=== PATIENT | female | born 1970 | race African-American/Black ===

== ENCOUNTER → 2020-08-24 | Outpatient (CLI) | payer BC ==
[2015-08-12 07:30] VITALS: BP 164/96
[~2020-08-24] MED LIST: PRED50TA PO
--- NOTE | 2020-08-30 14:58 | RAD ---
DATE: 08/24/2020 11:30 AM EXAM: MAMMO JR SCREENING BILATERAL HISTORY: New baseline screening. Priors not available for review. COMPARISON: None. Bilateral CC and MLO views of the breasts were performed. Bilateral breast tomosynthesis was performed in CC and MLO projections. This study was interpreted with the benefit of Computerized Aided Detection (CAD). FINDINGS: Breast Density: HETERO The breast parenchyma Is heterogeneously dense, which could reduce sensitivity of mammography. Breast parenchyma level C Right breast: Well-circumscribed mass within the right mid inferior breast approximately 6 m from the nipple measures 0.6 cm. Additional asymmetry seen on MLO view anterior depth approximately 4.2 cm from the nipple. No suspicious microcatheter ossification architectural distortion. Left breast: Well-circumscribed mass within the left upper outer breast approximately 6 m from the nipple measures 1.3 x 1.3 cm. No suspicious microcatheter ossification or architectural distortion. IMPRESSION: Right breast mass and asymmetry. Recommend spot compression views and ultrasound. Left breast mass. Recommend spot compression views and ultrasound. BI-RADS CATEGORY: 0 INCOMPLETE: NEEDS ADDITIONAL IMAGING EVALUATION AND/OR PRIOR MAMMOGRAMS FOR COMPARISON. RECOMMENDED FOLLOW-UP: ADD ADDITIONAL IMAGING. Bilateral breast spot compression views and ultrasound. PQRS compliance statement: Patient information was entered into a reminder system with a target due date for the next mammogram. Mammography is a sensitive method for finding small breast cancers, but it does not detect them all and is not a substitute for careful clinical examination. A negative mammogram does not negate a clinically suspicious finding and should not result in delay in biopsying a clinically suspicious abnormality. "Our facility is accredited by the [employer] Mammography Program."
== END ==
LOC: MAMMO 11:21
PROVIDERS: ATTEND Family Medicine
DX: Z12.31 Encounter for screening mammogram for malignant neoplasm of breast (principal); N63.20 Unspecified lump in the left breast, unspecified quadrant; N63.10 Unspecified lump in the right breast, unspecified quadrant
CPT/HCPCS: 77063; 77067

== ENCOUNTER → 2020-09-12 | Outpatient (CLI) | payer BC ==
[2015-08-12 07:30] VITALS: BP 164/96
--- NOTE | 2020-09-21 08:01 | RAD ---
DATE: 09/12/2020 EXAM: DIGITAL DIAGNOSTIC BILATERAL, BREAST BILATERAL HISTORY: 50-year-old woman recalled from screening mammogram for bilateral masses. COMPARISON: Screening mammogram 08/24/2020 This study was interpreted with the benefit of Computerized Aided Detection (CAD). Breast Density: HETERO The breast parenchyma is heterogenously dense, which could reduce sensitivity of mammography. Breast parenchyma level C. FINDINGS: Mammogram: Spot compression CC and MLO views of both breasts were obtained. The masses do not resolve with spot compression. Ultrasound: The right breast was imaged from 6:00 to 8:00. At 7:00, 5 cm from the nipple there is an ovoid hypoechoic mass measuring 6 x 3 x 2 mm. This has circumscribed margins and some posterior acoustic enhancement. There is no right breast mass identified. The right axilla demonstrates normal lymph nodes. The left breast was imaged 1:00 to 3:00. At 2:00, 5 cm from the nipple there is a ovoid hypoechoic solid mass with a few cystic changes. This has fairly circumscribed margins. IMPRESSION: 1. Mildly suspicious 9 mm hypoechoic mass in the left breast. Recommend ultrasound-guided biopsy. 2. Probably benign hypoechoic ovoid mass in the right breast. Recommend 6 month follow-up ultrasound to ensure stability. BI-RADS CATEGORY: 4 SUSPICIOUS ABNORMALITY- BIOPSY SHOULD BE CONSIDERED RECOMMENDED FOLLOW-UP: RIGHT BREAST: BIO BIOPSY RECOMMENDED LEFT BREAST: 6M6 MONTH FOLLOW-UP PQRS compliance statement: Patient information was entered into a reminder system with a target due date for the next mammogram. Mammography is a sensitive method for finding small breast cancers, but it does not detect them all and is not a substitute for careful clinical examination. A negative mammogram does not negate a clinically suspicious finding and should not result in delay in biopsying a clinically suspicious abnormality. "Our facility is accredited by the [employer] Mammography [employer]." MTDD
== END ==
LOC: MAMMO 13:26
PROVIDERS: ATTEND Family Medicine
DX: N63.13 Unspecified lump in the right breast, lower outer quadrant (principal); N63.21 Unspecified lump in the left breast, upper outer quadrant; R92.2 Inconclusive mammogram
CPT/HCPCS: 76641; 77066